=== PATIENT | female | born 1955 | race Caucasian/White ===

== ENCOUNTER → 2016-08-26 | Outpatient (CLI) | payer BC ==
[2016-08-26 11:09] LABS: ALT 48 U/L (9-52); AST 25 U/L (14-36); Alkaline Phosphatase 44 U/L (38-126); Anion Gap 11 mmol/L; Blood Urea Nitrogen 14 mg/dL (7-17); Calcium 9.1 mg/dL (8.4-10.2); Carbon Dioxide 27 mmol/L (22-30); Chloride 104 mmol/L (98-107); Cholesterol 170 mg/dL (<200); Glucose 116 mg/dL (74-99); HDL Cholesterol 44 mg/dL (40-60); Non-African American GFR(MDRD) >60 (>60 ml/min/1.73 sqM); Potassium 4.3 mmol/L (3.5-5.1); Sodium 142 mmol/L (137-145); Total Bilirubin 0.4 mg/dL (0.2-1.3); Total Protein 6.8 g/dL (6.3-8.2)
== END | disposition home or self-care (01) ==
LOC: LABWHC1 10:07
PROVIDERS: ATTEND Physician Assistant
DX: E78.00 Pure hypercholesterolemia, unspecified (principal); I10 Essential (primary) hypertension; E11.9 Type 2 diabetes mellitus without complications; E66.9 Obesity, unspecified; R63.4 Abnormal weight loss
CPT/HCPCS: 36415; 80053; 80061

== ENCOUNTER 2017-05-29 18:22 | Emergency (ER) | payer BC, OTHER ==
[2017-05-29] MEDS ORDERED: HYDROcodone/APAP 5-325MG 1 EACH TAB PO STA (18:36)
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
--- NOTE | 2017-05-29 19:51 | XR ---
EXAMINATION TYPE: XR hand complete LT, XR forearm LT DATE OF EXAM: 05/29/2017 CLINICAL HISTORY: pain TECHNIQUE: Frontal, lateral and oblique images of the left hand are obtained. COMPARISON: None. FINDINGS: There is no acute fracture/dislocation evident. The joint spaces appear within normal limi ts. The overlying soft tissue appears unremarkable. IMPRESSION: There is no acute fracture or dislocation. ICD 10 NO FRACTURE, INITIAL EVALUATION EXAMINATION TYPE: XR hand complete LT, XR forearm LT DATE OF EXAM: 05/29/2017 CLINICAL HISTORY: pain TECHNIQUE: Frontal and lateral images of the left forearm are obtained. COMPARISON: None. FINDINGS: There is no acute fracture/dislocation evident. The joint spaces appear within normal limi ts. The overlying soft tissue appears unremarkable.
--- NOTE | 2017-05-29 19:53 | XR ---
EXAMINATION TYPE: XR humerus LT, XR knee complete LT DATE OF EXAM: 05/29/2017 CLINICAL HISTORY: pain TECHNIQUE: Frontal and lateral images of the left humerus are obtained. COMPARISON: None. FINDINGS: There is no acute fracture/dislocation evident. The joint spaces appear within normal limi ts. The overlying soft tissue appears unremarkable. IMPRESSION: There is no acute fracture or dislocation. ICD 10 NO FRACTURE, INITIAL EVALUATION EXAMINATION TYPE: XR humerus LT, XR knee complete LT DATE OF EXAM: 05/29/2017 CLINICAL HISTORY: pain TECHNIQUE: Three views of the left knee are obtained. COMPARISON: None. FINDINGS: There is no acute fracture/dislocation. The tri-compartment joint spaces appear severely narrowed medial tibiofemoral joint space. Small suprapatellar joint effusion. The overlying soft tiss ue appears unremarkable. IMPRESSION: There is no acute fracture or dislocation ICD 10 NO FRACTURE, INITIAL EVALUATION
[2017-05-29 20:59] VITALS: BP 128/78; PULSE 98; RESP 18; TEMP 96.9
== END 2017-05-29 20:57 | disposition home or self-care (01) ==
LOC: EC 18:22
DX: S01.511A Laceration without foreign body of lip, initial encounter (principal); S46.912A Strain of unspecified muscle, fascia and tendon at shoulder and upper arm level, left arm, initial encounter; M25.562 Pain in left knee; I10 Essential (primary) hypertension; M19.90 Unspecified osteoarthritis, unspecified site; Z87.891 Personal history of nicotine dependence; Z79.899 Other long term (current) drug therapy; Z88.6 Allergy status to analgesic agent; Z88.2 Allergy status to sulfonamides; Z88.0 Allergy status to penicillin; Z88.8 Allergy status to other drugs, medicaments and biological substances; V18.4XXA Pedal cycle driver injured in noncollision transport accident in traffic accident, initial encounter; Y92.89 Other specified places as the place of occurrence of the external cause
CPT/HCPCS: 12011; 70450; 70486; 72125; 99285

== ENCOUNTER 2018-07-08 01:54 | Emergency (ER) | payer BC, MEDICARE ==
[2018-07-08 02:49] LABS: Basophils % (A) 0 %; Eosinophils # (A) 0.4 k/uL (0-0.7); Eosinophils % (A) 5 %; HCT 42.9 % (34.0-46.0); HGB 14.2 gm/dL (11.4-16.0); Lymphocytes # (A) 1.1 k/uL (1.0-4.8); Lymphocytes % (A) 12 %; MCH 30.7 pg (25.0-35.0); Mean Platelet Volume 6.4; Monocytes # (A) 0.7 k/uL (0-1.0); Monocytes % (A) 8 %; Neutrophils # (A) 6.6 k/uL (1.3-7.7); Neutrophils % (A) 73 %; Platelet Count 190 k/uL (150-450); RBC 4.61 m/uL (3.80-5.40); RDW 12.4 % (11.5-15.5); WBC 9.1 k/uL (3.8-10.6)
--- NOTE | 2018-07-08 03:05 | CT ---
EXAM: CT Abdomen and Pelvis Without Intravenous Contrast CLINICAL HISTORY: ITS.REASON CT Reason: Pain TECHNIQUE: Axial computed tomography images of the abdomen and pelvis without intravenous contrast. CTDI is 21 mGy and DLP is 1186 mGy-cm. This CT exam was performed using one or more of the following dose reduction techniques: automated exposure control, adjustment of the mA and/or kV according to patient size, and/or use of iterative reconstruction technique. COMPARISON: 01/28/14 CT abdomen FINDINGS: Lung bases: No mass. No consolidation. ABDOMEN: Liver: Mild steatosis. Gallbladder and bile ducts: Unremarkable. Pancreas: No ductal dilation. Spleen: Unremarkable. Adrenals: Unremarkable. Kidneys and ureters: No obstructing stones. No hydronephrosis. Stomach and bowel: No bowel obstruction. No bowel wall thickening. Colonic diverticulosis. PELVIS: Appendix: No evidence of appendicitis. Bladder: No stones. Reproductive: Both ovaries are prominent in size measuring around 3-4 cm bilaterally, this is also demonstrated on prior exam. ABDOMEN and PELVIS: Intraperitoneal space: Unremarkable. Bones/joints: No acute fractures. Soft tissues: Unremarkable. Vasculature: No abdominal aortic aneurysm. Lymph nodes: No enlarged lymph nodes. IMPRESSION: No acute intra-abdominal process. Colonic diverticulosis.
[2018-07-08 03:06] LABS: ALT 23 U/L (9-52); AST 23 U/L (14-36); Albumin 4.4 g/dL (3.5-5.0); Alkaline Phosphatase 53 U/L (38-126); Amylase 72 U/L (30-110); Anion Gap 9 mmol/L; Blood Urea Nitrogen 14 mg/dL (7-17); Calcium 9.3 mg/dL (8.4-10.2); Carbon Dioxide 25 mmol/L (22-30); Chloride 103 mmol/L (98-107); Glucose 166 mg/dL (74-99); Lipase 117 U/L (23-300); Potassium 4.5 mmol/L (3.5-5.1); Sodium 137 mmol/L (137-145); Total Bilirubin 0.6 mg/dL (0.2-1.3); Total Protein 7.4 g/dL (6.3-8.2)
[2018-07-08 03:24] VITALS: BP 137/73; PULSE 82; RESP 17
[2018-07-08 03:35] LABS: Appearance,Urine Clear (Clear); Bacteria,Urine Occasional /hpf; Bilirubin,Urine Negative (Negative); Blood,Urine Negative (Negative); Color,Urine Light Yellow; Glucose,Urine (UA) Negative (Negative); Ketones,Urine Negative (Negative); Leukocyte Esterase,Urine Large (Negative); Mucus,Urine Rare /hpf; Nitrite,Urine Negative (Negative); PH, Urine 6.5 (5.0-8.0); Protein,Urine Negative (Negative); RBC,Urine 1 /hpf (0-5); Specific Gravity,Urine 1.008 (1.001-1.035); Squamous Epithelial Cell,Urine 1 /hpf (0-4); Urobilinogen,Urine <2.0 mg/dL (<2.0); WBC,Urine 145 /hpf (0-5)
[2018-07-08] MEDS ORDERED: LEVOFLOXACIN 750 MG TAB PO STA (03:54)
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
[2018-07-08 04:12] VITALS: TEMP 98.3
== END 2018-07-08 04:15 | disposition home or self-care (01) ==
LOC: EC 01:54
DX: N39.0 Urinary tract infection, site not specified (principal); I10 Essential (primary) hypertension; Z79.899 Other long term (current) drug therapy; Z88.0 Allergy status to penicillin; Z88.2 Allergy status to sulfonamides; Z88.8 Allergy status to other drugs, medicaments and biological substances; Z88.6 Allergy status to analgesic agent; Z87.891 Personal history of nicotine dependence
CPT/HCPCS: 36415; 74176; 80053; 81001; 82150; 83605; 83690; 85025; 87086; 99284

== ENCOUNTER 2019-11-16 20:42 | Emergency (ER) | payer OTHER, MEDICARE ==
[2019-11-16] MEDS ORDERED: NITROGLYCERIN OINT 1 INCH/GM PACKET TOPICAL STA (21:06)
[2019-11-16] MEDS ORDERED: MORPHINE SULFATE 2 MG/ML SYRINGE IVP STA (21:20)
--- NOTE | 2019-11-16 21:52 | XR ---
EXAMINATION TYPE: XR chest 2V DATE OF EXAM: 11/16/2019 COMPARISON: 06/15/2014 HISTORY: Chest pain TECHNIQUE: FINDINGS: Heart is normal. Lungs are clear of infiltrate. There is no heart failure. There are no hil ar masses. Thoracic aorta is atheromatous. There are chest leads. Bony thorax appears intact. IMPRESSION: No active cardiopulmonary disease. No change.
[2019-11-16 22:04] LABS: Basophils # (A) 0.1 k/uL (0-0.2); Basophils % (A) 1 %; Eosinophils # (A) 0.5 k/uL (0-0.7); Eosinophils % (A) 8 %; HCT 45.2 % (34.0-46.0); HGB 15.1 gm/dL (11.4-16.0); Lymphocytes # (A) 1.5 k/uL (1.0-4.8); Lymphocytes % (A) 25 %; MCH 32.6 pg (25.0-35.0); MCHC 33.4 g/dL (31.0-37.0); MCV 97.5 fL (80.0-100.0); Mean Platelet Volume 6.9; Monocytes # (A) 0.3 k/uL (0-1.0); Monocytes % (A) 5 %; Neutrophils # (A) 3.4 k/uL (1.3-7.7); Neutrophils % (A) 59 %; Platelet Count 240 k/uL (150-450); RBC 4.63 m/uL (3.80-5.40); RDW 12.2 % (11.5-15.5); WBC 5.8 k/uL (3.8-10.6)
[2019-11-16 22:13] LABS: ALT 26 U/L (4-34); AST 29 U/L (14-36); African American GFR (CKD) >90 (>60 ml/min/1.73 sqM); Albumin 4.4 g/dL (3.5-5.0); Alkaline Phosphatase 60 U/L (38-126); Anion Gap 8 mmol/L; Blood Urea Nitrogen 19 mg/dL (7-17); Calcium 9.1 mg/dL (8.4-10.2); Carbon Dioxide 28 mmol/L (22-30); Chloride 105 mmol/L (98-107); Glucose 97 mg/dL (74-99); Magnesium 1.8 mg/dL (1.6-2.3); Non-African American GFR(CKD) 79 (>60 ml/min/1.73 sqM); Potassium 4.4 mmol/L (3.5-5.1); Sodium 141 mmol/L (137-145); Total Bilirubin 0.3 mg/dL (0.2-1.3); Total Protein 7.5 g/dL (6.3-8.2)
[2019-11-16 22:16] LABS: Partial Thromboplastin Time 24.5 sec (22.0-30.0); Prothrombin Time 10.1 sec (9.0-12.0)
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
[2019-11-17 01:50] VITALS: BP 140/82; PULSE 78; RESP 18; TEMP 98.3
== END 2019-11-17 01:50 | disposition home or self-care (01) ==
LOC: EC 20:42
DX: R07.81 Pleurodynia (principal); R07.89 Other chest pain; I10 Essential (primary) hypertension; E11.9 Type 2 diabetes mellitus without complications; F32.9 Major depressive disorder, single episode, unspecified; Z79.84 Long term (current) use of oral hypoglycemic drugs; Z79.899 Other long term (current) drug therapy; Z88.6 Allergy status to analgesic agent; Z88.2 Allergy status to sulfonamides; Z88.0 Allergy status to penicillin; Z88.8 Allergy status to other drugs, medicaments and biological substances; V89.2XXA Person injured in unspecified motor-vehicle accident, traffic, initial encounter; Y92.410 Unspecified street and highway as the place of occurrence of the external cause
CPT/HCPCS: 36415; 93005; 80053; 83735; 84484; 85025; 85610; 85730; 71046; 99284; 96374; J2270

== ENCOUNTER 2021-12-15 12:01 | Emergency (ER) | payer MEDICARE ==
[2021-12-15] MEDS ORDERED: ACETAMINOPHEN TAB 325 MG TAB PO STA (12:27)
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
--- NOTE | 2021-12-15 13:38 | XR ---
EXAMINATION TYPE: XR elbow complete RT DATE OF EXAM: 12/15/2021 12:59 PM INDICATION: Patient age:Female; 66 years old; Reason for study: pain; COMPARISON: None TECHNIQUE: The right elbow was examined in AP, lateral, and oblique projections. FINDINGS: No evidence of any acute osseous pathology, joint dislocation, or soft tissue swelling is n oted. No evidence of joint effusion is present. IMPRESSION: No evidence of acute fracture.
--- NOTE | 2021-12-15 13:40 | XR ---
EXAMINATION TYPE: XR wrist complete RT DATE OF EXAM: 12/15/2021 12:59 PM INDICATION: Patient age:Female; 66 years old; Reason for study: pain COMPARISON: None TECHNIQUE: Right wrist was examined in the. Frontal, navicular, lateral, and oblique. FINDINGS: No acute osseous pathology, joint dislocation, or joint effusion. No evidence of any soft tissue swelling is seen. Remote injury to the right ulnar styloid process. Scattered degeneration velia nges to the joints of the wrist/and. IMPRESSION: 1. No acute osseous pathology. 2. Remote right ulnar styloid process injury.
[2021-12-15 14:10] VITALS: BP 140/80; PULSE 68; RESP 16; TEMP 97.5
== END 2021-12-15 20:06 | disposition home or self-care (01) ==
LOC: EC 12:01
DX: S00.93XA Contusion of unspecified part of head, initial encounter (principal); S40.021A Contusion of right upper arm, initial encounter; E11.9 Type 2 diabetes mellitus without complications; K21.9 Gastro-esophageal reflux disease without esophagitis; E78.5 Hyperlipidemia, unspecified; I10 Essential (primary) hypertension; F32.A Depression, unspecified; Z88.0 Allergy status to penicillin; Z88.2 Allergy status to sulfonamides; Z88.8 Allergy status to other drugs, medicaments and biological substances; Z79.51 Long term (current) use of inhaled steroids; Z79.84 Long term (current) use of oral hypoglycemic drugs; Z79.899 Other long term (current) drug therapy; Y04.8XXA Assault by other bodily force, initial encounter
CPT/HCPCS: 70450; 72125; 99285

== ENCOUNTER → 2022-01-07 | Outpatient (CLI) | payer MEDICARE ==
--- NOTE | 2022-01-07 10:31 | CA ---
Lexiscan Nuclear Stress Test Report Name: Sara Hutchinson Exam Date: 01/07/2022 09:49 Exam Location: [place] Stress Ht (in): 68 Wt (lb): 217 BSA: 2.12 Ordering Phys: Stephanie Diego DO Referring Phys: Juliana Collier PAC Technologist: Wily Bueno Age: 66 Gender: F : 1955 Procedure CPT: Indications: R07.9 CHEST PAIN ICD-10 Codes: Patient History: Medications: METFORMIN,,,,,, LANTHRO,,,,, Meds past 24 hrs: Pretest Chest Pain: STRESS TEST Lexiscan Protocol Exercise Duration (min:sec): 01:[address] Depressions (mm): Angina Score: Richmond Score: Resting HR (bpm): 82 Peak HR (bpm): 98 Resting BP (mmHg): 136 / 75 Peak BP (mmHg): / 68 MPHR: 152 Target HR: 129 % MPHR: 64 METS: 1.0 Total Dose: Peak Dose: Atropine: Double Product: BP Response: Stress Termination: INFUSION COMPLETE Stress Symptoms: CHEST TIGHTNESS,NAUSEA Stress Summary: ECG ANALYSIS Resting ECG: Stress ECG: CONCLUSIONS Baseline EKG revealed a normal sinus rhythm without significant ST-T changes. With Lexiscan administration the heart rate changed from 82-95 bpm. The blood pressure changed from 136/75- 115/76. Patient had transient nausea and chest tightness. EKG remained unremarkable. The nuclear scan results which are more pertinent will be reported by the radiologist. By EKG criteria this is a unremarkable Lexiscan stress test Dr. Hardeep Cline MD (Electronically Signed) Final Date: 07 January 2022 10:31
--- NOTE | 2022-01-07 14:26 | NM ---
EXAMINATION TYPE: NM stress lexiscan cardiolite DATE OF EXAM: 01/07/2022 COMPARISON: NONE HISTORY: Chest pain, palpitations, and difficulty in breathing. History of asthma, tobacco use, and d iabetes. TECHNIQUE: After the intravenous administration of 9.67 mCi Tc 99m Sestamibi - Cardiolite resting SP ECT images acquired 45 minutes post injection. The patient received 0.4mg Lexiscan, 26.5 mCi Tc 99m Sestamibi - Stress images obtained [address] injection FINDINGS: Diminished radiotracer uptake lateral left ventricular wall mid segment seen on short axis and horizo ntal long axis views in which acute ischemia cannot be excluded. Gated analysis shows overall estima jonathan left ventricular ejection fraction of around 60 %. IMPRESSION: Possible reversible ischemia left circumflex distribution. Correlate clinically and with EKG findings. A Yellow level critical message alert has been initiated for Stephanie Diego DO via the [employer] Critical Results System on 01/07/2022 2:23 PM. This message alert has been sent to Stephanie wilson DO via the preferences provided by the clinician for the receipt of Radiology Critical Findings. Message ID [id number].
== END | disposition home or self-care (01) ==
LOC: RADNMMAIN 08:00
PROVIDERS: ATTEND Family Medicine
DX: J45.909 Unspecified asthma, uncomplicated (principal); E11.9 Type 2 diabetes mellitus without complications; R07.9 Chest pain, unspecified; Z87.891 Personal history of nicotine dependence
CPT/HCPCS: 93017; 78452; A9500

== ENCOUNTER → 2022-02-25 | Outpatient (CLI) | payer MEDICARE ==
[2022-02-25 14:59] LABS: HCT 45.7 % (37.2-46.3); HGB 15.1 g/dL (12.0-15.0); MCH 31.8 pg (27.0-32.0); MCV 96.2 fL (80.0-97.0); Mean Platelet Volume 9.5 fL (9.5-12.2); NRBC Per 100 WBC 0 /100 WBCS (0.0-0.0); Platelet Count 234 X 10*3/uL (140-440); RBC 4.75 X 10*6/uL (4.10-5.20); RDW 12.2 % (11.5-14.5); WBC 5.81 X 10*3/uL (4.50-10.00)
[2022-02-25 16:12] LABS: African American GFR (CKD) 87.8 (60.0-200.0); Blood Urea Nitrogen 15.3 mg/dL (9.0-27.0); Non-African American GFR(CKD) 75.8 (60.0-200.0); Potassium 4.5 mmol/L (3.5-5.5)
== END | disposition home or self-care (01) ==
LOC: LABPAT 09:36
PROVIDERS: ATTEND Internal Medicine Cardiovascular Disease
DX: Z01.812 Encounter for preprocedural laboratory examination (principal); R07.9 Chest pain, unspecified; R06.02 Shortness of breath
CPT/HCPCS: 36415; 80051; 82565; 84520; 85027

== ENCOUNTER 2022-03-04 10:32 | Day surgery (SDC) | payer MEDICARE ==
[~2022-03-04 10:32] MED LIST: ALPRAZolam 0.25 MG TAB PO PRN; ALPRAZolam 0.5 MG TAB PO PRN; ASPIRIN 325 MG TAB PO STA; ATORVASTATIN 80 MG TAB PO STA; HEPARIN SODIUM,PORCINE 10,000 UNIT in SODIUM CHLORIDE 0.9% 1,000 ML IRRIGATION PRN; HEPARIN SODIUM,PORCINE 2,500 UNIT in SODIUM CHLORIDE 0.9% 250 ML IRRIGATION PRN; NITROGLYCERIN SL TABS 0.4 MG TAB SUBLINGUAL PRN; SODIUM CHLORIDE 0.9% 1,000 ML in EMPTY BAG 1 BAG IV SCH
[2022-03-04] MEDS ORDERED: VERAPAMIL 2.5 MG/ML 2 ML AMP ONE (11:21)
[2022-03-04 11:24] VITALS: TEMP 97.7
[2022-03-04 11:24] LABS: Glucose,Whole Blood 110 mg/dL (70-110)
[2022-03-04] MEDS ORDERED: fentaNYL (PF) 50 MCG/ML 2 ML AMP ONE (11:40)
[2022-03-04] MEDS ORDERED: HEPARIN SODIUM 1,000 UN/ML (10ML VL) ONE (11:40)
[2022-03-04] MEDS ORDERED: fentaNYL (PF) 50 MCG/ML 2 ML AMP IV ONE (11:43)
[2022-03-04] MEDS ORDERED: MIDAZOLAM 2 MG/2 ML VIAL IV ONE (11:44)
[2022-03-04] MEDS ORDERED: LIDOCAINE 1% INJ 10MG/ML (5 ML VIAL-PF) SQ ONE (11:47)
[2022-03-04] MEDS ORDERED: VERAPAMIL SYRINGE (5 MG/10 ML) INTRAARTER ONE (11:48)
[2022-03-04] MEDS ORDERED: HEPARIN SODIUM 1,000 UN/ML (10ML VL) IV ONE (11:51)
[2022-03-04] MEDS ORDERED: IOPAMIDOL-370 125ML BTL INJ ONE (12:10)
[2022-03-04 16:45] VITALS: RESP 16
[2022-03-04 16:51] VITALS: BP 109/58; PULSE 60
--- NOTE | 2022-03-05 00:51 | CC ---
CARDIAC CATHETERIZATION REPORT INDICATIONS: Chest pain with abnormal stress test showing ischemia involving lateral wall. PROCEDURE NOTE: After obtaining informed consent, left heart catheterization and coronary angiogram were performed via the right radial artery using standard Rosalba catheters. The hemodynamics were obtained with the right Rosalba catheter. The patient tolerated the procedure well without any obvious immediate complications. She received moderate conscious sedation. Total sedation time was 14 minutes. I obtained right radial artery access using modified Seldinger technique. A 6-Mohawk sheath was placed. Catheters and wires were floated into the ascending aorta under fluoroscopic guidance where they were exchanged. FINDINGS: 1. Hemodynamics: Left ventricular end-diastolic pressure is 10 mm, there is no significant gradient across the aortic valve. 2. Left Ventriculogram: Left ventriculogram is not performed. 3. Angiographic Data. a.Left Main Coronary Artery: Left main coronary artery is a normal-sized vessel and is free of stenosis. It divides into left anterior descending coronary artery and circumflex coronary artery. Circumflex coronary artery and its branches are free of significant stenosis. LAD shows a 30% to 40% atherosclerotic plaque in its midportion. Right coronary artery is a large dominant vessel. There is a 30% to 40% stenosis involving the PDA branch. CONCLUSION: Mild nonobstructive disease. PLAN: The patient's chest discomfort is noncardiac in origin and the stress test is a false- positive stress test. Her management is going to be in the form of optimal medical therapy. MMODL / EDMARN: [id number] /
== END 2022-03-04 16:15 | disposition home or self-care (01) ==
LOC: CATHCVL 10:32
PROVIDERS: ATTEND Internal Medicine Cardiovascular Disease
DX: R07.89 Other chest pain (principal); E11.9 Type 2 diabetes mellitus without complications; F17.210 Nicotine dependence, cigarettes, uncomplicated; J45.909 Unspecified asthma, uncomplicated; F32.A Depression, unspecified; Z82.49 Family history of ischemic heart disease and other diseases of the circulatory system; Z79.82 Long term (current) use of aspirin; Z79.899 Other long term (current) drug therapy
CPT/HCPCS: 93458; C1769; C1894; J2250; J2001; J3010; J1644; Q9967